=== PATIENT | female | born 1980 | race Caucasian/White ===

== ENCOUNTER → 2021-01-08 | Outpatient (CLI) | payer OTHER ==
[~2021-01-08] MED LIST: Align4 MG PO; IBUP800 PO; ONE DAILY FOR1 EACH PO
[2021-01-09 19:06] LABS: HPV 16 Negative (Negative); HPV 18 Negative (Negative); HPV OTHER HR TYPES Negative (Negative)
== END | disposition home or self-care (01) ==
LOC: LAB 09:15 → LAB SHORT 09:15
PROVIDERS: Physician Assistant
DX: Z01.419 Encounter for gynecological examination (general) (routine) without abnormal findings (principal)
CPT/HCPCS: 87624; G0145

== ENCOUNTER → 2021-12-03 | Outpatient (CLI) | payer OTHER ==
[2021-12-05 15:07] LABS: HPV 16 Negative (Negative); HPV 18 Negative (Negative); HPV OTHER HR TYPES Negative (Negative)
== END | disposition home or self-care (01) ==
LOC: LAB SHORT 15:30 → LAB 15:30
PROVIDERS: Physician Assistant
DX: Z01.419 Encounter for gynecological examination (general) (routine) without abnormal findings (principal)
CPT/HCPCS: 87624; G0145

== ENCOUNTER 2022-01-13 08:00 | Day surgery (SDC) | payer OTHER ==
[~2022-01-13] VITALS: Ht 170.2 cm; Wt 54.5 kg
[2022-01-13] MEDS ORDERED: PROG100 (08:25)
[2022-01-13] MEDS ORDERED: ESTRADIOL (ONC1 EA11 (08:25)
[2022-01-13] MEDS ORDERED: TRAZ50 (08:25)
[2022-01-13] MEDS ORDERED: SERT100 (08:25)
--- NOTE | 2022-01-13 10:20 | NUR ---
01/13/22 1020 CARLOS A ELDRIDGE USING [facility] ACCESS SINCE [facility] [place]
== END 2022-01-13 10:10 | disposition home or self-care (01) ==
LOC: ORSCSDS 08:00
PROVIDERS: Student in an Organized Health Care Education/Training Program
PROC: 0DBN8ZX Excision of Sigmoid Colon, Via Natural or Artificial Opening Endoscopic, Diagnostic (ICD-10-PCS; principal; 2022-01-13 09:15)
DX: K90.0 Celiac disease (principal); Z83.71 Family history of colonic polyps; K63.5 Polyp of colon; Z79.899 Other long term (current) drug therapy
CPT/HCPCS: 88305; J2250; J2405; J2704

== ENCOUNTER 2022-11-15 18:41 | Emergency (ER) | payer OTHER ==
[~2022-11-15] VITALS: Ht 170.2 cm; Wt 58.1 kg
[~2022-11-15 18:41] MED LIST changes: +ESTRADIOL (ONC1 EA11; +PROG100; +SERT100; +TRAZ50
[2022-11-15 18:44] VITALS: BP 136/93
== END 2022-11-15 22:17 | disposition home or self-care (01) ==
LOC: ER 18:41
DX: S01.81XA Laceration without foreign body of other part of head, initial encounter (principal); M79.632 Pain in left forearm; Z88.6 Allergy status to analgesic agent; Z88.0 Allergy status to penicillin; Z88.2 Allergy status to sulfonamides; Z88.1 Allergy status to other antibiotic agents; Z88.5 Allergy status to narcotic agent; Z23 Encounter for immunization; V26.49XA Other motorcycle driver injured in collision with other nonmotor vehicle in traffic accident, initial encounter
CPT/HCPCS: 73090; 90714; A9270